=== PATIENT | male | born 1960 | race Caucasian/White ===

== ENCOUNTER 2022-03-14 12:48 | Emergency (ER) | payer OTHER ==
[2022-03-14] MEDS ORDERED: Diphtheria,Pertussis(Acell),Tetanus Vaccine 0.5 ML Syringe IM ONE (12:59)
[2022-03-14] MEDS ORDERED: Bacitracin/Neomycin/Polymyxin B Oint 0.9 GM U/D Packet TOP ONE (13:42)
== END 2022-03-14 13:52 | disposition home or self-care (01) ==
LOC: CC.ED 12:48
DX: S91.331A Puncture wound without foreign body, right foot, initial encounter (principal); Z23 Encounter for immunization; Z88.0 Allergy status to penicillin; E11.9 Type 2 diabetes mellitus without complications; W45.0XXA Nail entering through skin, initial encounter
CPT/HCPCS: 73630-RT; 90471; 90715; 99283; 99283-25